=== PATIENT | male | born 1990 | race Caucasian/White ===

== ENCOUNTER 2017-06-15 03:37 | Emergency (ER) | payer OTHER ==
[~2017-06-15] VITALS: Ht 167.6 cm; Wt 77.2 kg
[2017-06-15 03:44] VITALS: BP 159/101
[2017-06-15] MEDS ORDERED: ZYPR2.5T2 PO (03:47)
[2017-06-15] MEDS ORDERED: ZOLO50TA PO (03:47)
[2017-06-15] MEDS ORDERED: IBUP80TA PO (06:55)
[2017-06-15] MEDS ORDERED: AUGM875T28 PO (06:55)
[2017-06-15] MEDS ORDERED: MUCI600T37 PO (06:55)
[2017-06-15] MEDS ORDERED: SUDA30TA PO (06:55)
[2017-06-15] MEDS ORDERED: IBUPROFEN 800 MG TAB PO ONE (07:00)
[2017-06-15] MEDS ORDERED: AUGMENTIN 875 MG TAB PO ONE (07:00)
== END 2017-06-15 07:05 | disposition home or self-care (01) ==
LOC: M ED 03:37
DX: J00 Acute nasopharyngitis [common cold] (principal); F43.10 Post-traumatic stress disorder, unspecified; F33.9 Major depressive disorder, recurrent, unspecified; Z79.899 Other long term (current) drug therapy

== ENCOUNTER 2017-08-04 14:12 | Emergency (ER) | payer OTHER ==
[~2017-08-04 14:12] MED LIST: AUGM875T28 PO; IBUP80TA PO; MUCI600T37 PO; SUDA30TA PO; ZOLO50TA PO; ZYPR2.5T2 PO
[2017-08-04] MEDS ORDERED: LUNE3TAB36 PO (14:24)
[2017-08-04] MEDS ORDERED: PAXI20TA29 PO (14:24)
[2017-08-04 16:13] LABS: MEAN CORPUSCULAR HEMOGLOBIN 24.4 pg (27.0-33.0); MEAN CORPUSCULAR HGB CONC 33.3 g/dl (32.0-36.5); RED CELL DISTRIBUTION WIDTH 13.3 % (11.5-14.5); WHITE BLOOD COUNT 7.5 10^3/uL (4.0-10.0)
[2017-08-04 16:16] LABS: MEAN CORPUSCULAR VOLUME 73.1 fl (80.0-96.0)
[2017-08-04 16:35] LABS: METHADONE URINE NEGATIVE (NEGATIVE)
[2017-08-04 16:46] LABS: ALBUMIN 4.6 GM/DL (3.2-5.2); ALBUMIN/GLOBULIN RATIO 1.31 (1.00-1.93); ALKALINE PHOSPHATASE 86 U/L (45-117); ALT/SGPT 48 U/L (12-78); ANION GAP 7 MEQ/L (8-16); AST/SGOT 21 U/L (15-37); BILIRUBIN,DIRECT < 0.1 MG/DL (0.0-0.2); BILIRUBIN,TOTAL 0.4 MG/DL (0.2-1.0); BLOOD UREA NITROGEN 15 MG/DL (7-18); CALCIUM LEVEL 8.8 MG/DL (8.5-10.1); CARBON DIOXIDE LEVEL 29 MEQ/L (21-32); CHLORIDE LEVEL 103 MEQ/L (98-107); CREATININE FOR GFR 1.21 MG/DL (0.70-1.30); GLOMERULAR FILTRATION RATE > 60.0 (>60); GLUCOSE, FASTING 94 MG/DL (70-105); POTASSIUM SERUM 3.8 MEQ/L (3.5-5.1); SODIUM LEVEL 139 MEQ/L (136-145); TOTAL PROTEIN 8.1 GM/DL (6.4-8.2)
[2017-08-04 17:23] VITALS: BP 160/100
== END 2017-08-04 17:23 | disposition home or self-care (01) ==
LOC: M ED 14:12
DX: F43.10 Post-traumatic stress disorder, unspecified (principal); F33.9 Major depressive disorder, recurrent, unspecified; F41.9 Anxiety disorder, unspecified; F17.210 Nicotine dependence, cigarettes, uncomplicated; Z79.899 Other long term (current) drug therapy
CPT/HCPCS: 36415; 80048; 80076; 80307; 84443; 85027; 99285; G0480